=== PATIENT | male | born 1975 | race Caucasian/White ===

== ENCOUNTER 2016-10-22 19:31 | Emergency (ER) | payer OTHER ==
[2016-10-22 19:51] VITALS: BP 161/106; PULSE 90; RESP 16; TEMP 97.7
--- NOTE | 2016-10-22 20:35 | XR ---
Right wrist and right hand HISTORY: Trauma and pain 4 views of the right wrist correlated to right hand same date, 3 views of the right hand Bone mineralization, joint spaces and alignment are maintained IMPRESSION: No fracture or dislocation. Follow-up as indicated
--- NOTE | 2016-10-22 20:43 | ED ---
Upper Extremity HPI - General Chief Complaint: Extremity Injury, Upper Stated Complaint: Hand Injury/IHS Time Seen by Provider: 10/22/16 19:59 Source: patient, RN notes reviewed, old records reviewed Mode of arrival: ambulatory Limitations: no limitations - History of Present Illness Initial Comments: Patient is a 41 year old male with chief complaint of right hand and thumb pain after a rima landed on his hand at work. Patient denies any other injury that occured. Patient reports increased pain with movement of hand and axial thumb loading. Denies peripheral paresthesias. Patient is right handed. PAtient denies previous right hand injuries. Patient denies elbow, shoulder or back pain. Patient denies fever, chills, shortness of breath, chest pain, nausea, vomiting, abdomiinal pain. Place: work - Related Data Home Medications Medication Instructions Recorded Confirmed metFORMIN HCL 1,000 mg PO BID 06/14/16 10/22/16 sitaGLIPtin [Januvia] 100 mg PO DAILY 06/14/16 10/22/16 Previous Rx's Medication Instructions Recorded Hydrochlorothiazide [Hydrodiuril] 12.5 mg PO DAILY #20 cap 10/08/14 Allergies Allergy/AdvReac Type Severity Reaction Status Date / Time No Known Allergies Allergy Verified 10/22/16 19:51 Review of Systems ROS Statement: Those systems with pertinent positive or pertinent negative responses have been documented in the HPI. ROS Other: All systems not noted in ROS Statement are negative. Past Medical History Past Medical History: Diabetes Mellitus, Hyperlipidemia, Hypertension Additional Past Medical History / Comment(s): migraine History of Any Multi-Drug Resistant Organisms: None Reported Past Surgical History: No Surgical Hx Reported Past Psychological History: No Psychological Hx Reported Smoking Status: Never smoker Past Alcohol Use History: None Reported Past Drug Use History: None Reported General Exam Limitations: no limitations General appearance: alert, in no apparent distress Head exam: Present: atraumatic, normocephalic, normal inspection Eye exam: Present: normal appearance, PERRL, EOMI. Absent: scleral icterus, conjunctival injection, periorbital swelling ENT exam: Present: normal exam, mucous membranes moist Neck exam: Present: normal inspection. Absent: tenderness, meningismus, lymphadenopathy Respiratory exam: Present: normal lung sounds bilaterally. Absent: respiratory distress, wheezes, rales, rhonchi, stridor Cardiovascular Exam: Present: regular rate, normal rhythm, normal heart sounds. Absent: systolic murmur, diastolic murmur, rubs, gallop, clicks GI/Abdominal exam: Present: soft, normal bowel sounds. Absent: distended, tenderness, guarding, rebound, rigid Extremities exam: Present: normal inspection, full ROM, normal capillary refill. Absent: tenderness, pedal edema, joint swelling, calf tenderness Right Forearm Wrist exam: Present: normal inspection, full ROM, swelling (mild swelling and echymosis near thumb base ), tenderness over anatomical snuff box, pain with axial thumb loading. Absent: erythema Hand Wrist exam: Present: normal inspection, full ROM Neuro motor exam: Present: wrist extension intact, thumb opposition intact, thumb IP flexion intact, thumb adduction intact, fingers 2-5 abduction intact Vascular: Present: normal capillary refill Back exam: Present: normal inspection Neurological exam: Present: alert, oriented X3, CN II-XII intact Psychiatric exam: Present: normal affect, normal mood Skin exam: Present: warm, dry, intact, normal color. Absent: rash Course Vital Signs 10/22/16 19:47 Temperature 97.7 F Pulse Rate 90 Respiratory 16 Rate Blood Pressure 161/106 O2 Sat by Pulse 97 Oximetry Procedures - Orthopedic Splinting/Casting Injury #1 Side: right Upper Extremity Injury Location: hand Upper Extremity Immobilizer: thumb spica Additional Comments: Patient assessed and is neurovascularly intact after splint applied. Medical Decision Making - Medical Decision Making Patient is a 41 year old male with right thumb and wrist pain after a heavy rima landed on it at work at [employer]. Patient xrays are negative for acute process. Patient is tender over the snuffbox area. Thumb spica splint applied. Given referral to orthopedics. Patient understands treatment plan and will comply, return parameters discussed. Disposition Clinical Impression: Strain of right wrist, Sprain, thumb Disposition: HOME SELF-CARE Condition: Good Instructions: Hand Sprain (ED), Scaphoid Fracture (ED) Additional Instructions: Patient instructed to follow-up with orthopedic physician. Remain in splint until seen by orthopedic. Return to the [facility] if any alarming signs or symptoms occur. Referrals: Estefany Gonzalez MD [Primary Care Provider] - 1-2 days Bruce Connolly DO [Doctor of Osteopathic Medicine] - 1-2 days Time of Disposition: 20:45
== END 2016-10-22 20:58 | disposition home or self-care (01) ==
LOC: EC 19:31
DX: S63.501A Unspecified sprain of right wrist, initial encounter (principal); S63.601A Unspecified sprain of right thumb, initial encounter; E11.9 Type 2 diabetes mellitus without complications; Z79.899 Other long term (current) drug therapy
CPT/HCPCS: 29125; 99283

== ENCOUNTER 2020-12-03 18:09 | Emergency (ER) | payer OTHER ==
--- NOTE | 2020-12-03 18:36 | ED ---
General Adult HPI - General Chief complaint: Neck Pain/Injury Stated complaint: Shakey, stiff neck Time Seen by Provider: 12/03/20 18:27 Source: patient Mode of arrival: ambulatory Limitations: no limitations - History of Present Illness Initial comments: Terry is a 45-year-old gentleman diabetes, hypertension and hyperlipidemia presents to ER today for evaluation of sudden onset of sweating and lightheadedness. Patient reports he was cooking dinner when he suddenly got very sweaty fell when he was going to pass out. This was similar to episodes of hypoglycemia in the past but he reports he checked his glucose and it was in the 200s. He then decided to come to ER for further evaluation. She patient reports that he feels like he is very tense right now has some tension in his neck and a mild headache, no chest pain shortness breath no recent illness. - Related Data Home Medications Medication Instructions Recorded Confirmed metFORMIN HCL 1,000 mg PO BID 06/14/16 10/22/16 sitaGLIPtin [Januvia] 100 mg PO DAILY 06/14/16 10/22/16 Previous Rx's Medication Instructions Recorded hydroCHLOROthiazide [Hydrodiuril] 12.5 mg PO DAILY #20 cap 10/08/14 Allergies Allergy/AdvReac Type Severity Reaction Status Date / Time No Known Allergies Allergy Verified 12/03/20 18:16 Review of Systems ROS Statement: Those systems with pertinent positive or pertinent negative responses have been documented in the HPI. ROS Other: All systems not noted in ROS Statement are negative. Past Medical History Past Medical History: Diabetes Mellitus, Hyperlipidemia, Hypertension Additional Past Medical History / Comment(s): migraine History of Any Multi-Drug Resistant Organisms: None Reported Past Surgical History: No Surgical Hx Reported Past Psychological History: No Psychological Hx Reported Smoking Status: Current every day smoker Past Alcohol Use History: None Reported Past Drug Use History: None Reported General Exam - General Exam Comments Initial Comments: Physical Exam GENERAL: Patient is well-developed and well-nourished. Patient is nontoxic and well- hydrated and is in no distress. HENT: Normocephalic, Atraumatic. Full range of motion of neck without pain EYES: PERRL, EOMI PULMONARY: Unlabored respirations. No audible rales rhonchi or wheezing was noted. CARDIOVASCULAR: There is a regular rate and rhythm without any murmurs gallops or rubs. ABDOMEN: Soft and nontender with normal bowel sounds. SKIN: Skin is clear with no lesions or rashes and otherwise unremarkable. : Deferred NEUROLOGIC: Patient is alert and oriented x3. Moving all extremities spontaneously MUSCULOSKELETAL: Normal extremities with adequate strength and full range of motion. No lower extremity swelling or edema. No calf tenderness. PSYCHIATRIC: Normal psychiatric evaluation. Limitations: no limitations Course Vital Signs 12/03/20 12/03/20 12/03/20 18:11 19:08 19:39 Temperature 97.4 F L Pulse Rate 89 82 Respiratory 20 18 18 Rate Blood Pressure 149/104 114/78 O2 Sat by Pulse 97 96 Oximetry 12/03/20 12/03/20 20:38 21:02 Temperature 97.6 F Pulse Rate 83 Respiratory 18 Rate Blood Pressure 130/81 O2 Sat by Pulse 96 Oximetry Medical Decision Making - Medical Decision Making The patient was seen and evaluated history is obtained from patient labs were obtained EKG was obtained due to complaint of lightheadedness, EKG was obtained 1826 rate is 81 rhythm is sinus there is a normal axis, there are normal intervals, MD 146, QRS 88 QTc is 427 there are no acute ST elevations or depressions there is no evidence of ischemia, infarction or malignant arrhythmia Labs head CT and chest x-ray were all unremarkable patient is feeling better after IV fluids. I did advise patient his glucose was only 104 on labs which does not correlate with the greater than 200 reading he had at home. I suspect his meter may be reading erroneously high and his symptoms were likely due to an episode of hypoglycemia. Patient is in agreement with this and will recheck his meter. Close return parameters were discussed patient is discharged home in stable condition. - Lab Data Result diagrams: 12/03/20 19:14 12/03/20 19:14 Lab Results 12/03/20 12/03/20 12/03/20 Range/Units 19:14 19:14 19:14 WBC 6.3 (3.8-10.6) k/uL RBC 5.14 (4.30-5.90) m/uL Hgb 15.2 (13.0-17.5) gm/dL Hct 44.7 (39.0-53.0) % MCV 87.0 (80.0-100.0) fL MCH 29.6 (25.0-35.0) pg MCHC 34.0 (31.0-37.0) g/dL RDW 12.8 (11.5-15.5) % Plt Count 211 (150-450) k/uL MPV 8.4 Neutrophils % 43 % Lymphocytes % 40 % Monocytes % 9 % Eosinophils % 3 % Basophils % 1 % Neutrophils # 2.7 (1.3-7.7) k/uL Lymphocytes # 2.6 (1.0-4.8) k/uL Monocytes # 0.6 (0-1.0) k/uL Eosinophils # 0.2 (0-0.7) k/uL Basophils # 0.1 (0-0.2) k/uL PT 11.0 (9.0-12.0) sec INR 1.0 (<1.2) APTT 24.9 (22.0-30.0) sec Sodium 135 L (137-145) mmol/L Potassium 4.1 (3.5-5.1) mmol/L Chloride 98 (98-107) mmol/L Carbon Dioxide 24 (22-30) mmol/L Anion Gap 13 mmol/L BUN 24 H (9-20) mg/dL Creatinine 0.81 (0.66-1.25) mg/dL Est GFR (CKD-EPI)AfAm >90 (>60 ml/min/1.73 sqM) Est GFR (CKD-EPI)NonAf >90 (>60 ml/min/1.73 sqM) Glucose 104 H (74-99) mg/dL Calcium 9.5 (8.4-10.2) mg/dL Magnesium 1.5 L (1.6-2.3) mg/dL Total Bilirubin 0.9 (0.2-1.3) mg/dL AST 35 (17-59) U/L ALT 55 H (4-49) U/L Alkaline Phosphatase 44 (38-126) U/L Troponin I (0.000-0.034) ng/mL Total Protein 8.1 (6.3-8.2) g/dL Albumin 5.0 (3.5-5.0) g/dL 12/03/20 Range/Units 19:14 WBC (3.8-10.6) k/uL RBC (4.30-5.90) m/uL Hgb (13.0-17.5) gm/dL Hct (39.0-53.0) % MCV (80.0-100.0) fL MCH (25.0-35.0) pg MCHC (31.0-37.0) g/dL RDW (11.5-15.5) % Plt Count (150-450) k/uL MPV Neutrophils % % Lymphocytes % % Monocytes % % Eosinophils % % Basophils % % Neutrophils # (1.3-7.7) k/uL Lymphocytes # (1.0-4.8) k/uL Monocytes # (0-1.0) k/uL Eosinophils # (0-0.7) k/uL Basophils # (0-0.2) k/uL PT (9.0-12.0) sec INR (<1.2) APTT (22.0-30.0) sec Sodium (137-145) mmol/L Potassium (3.5-5.1) mmol/L Chloride (98-107) mmol/L Carbon Dioxide (22-30) mmol/L Anion Gap mmol/L BUN (9-20) mg/dL Creatinine (0.66-1.25) mg/dL Est GFR (CKD-EPI)AfAm (>60 ml/min/1.73 sqM) Est GFR (CKD-EPI)NonAf (>60 ml/min/1.73 sqM) Glucose (74-99) mg/dL Calcium (8.4-10.2) mg/dL Magnesium (1.6-2.3) mg/dL Total Bilirubin (0.2-1.3) mg/dL AST (17-59) U/L ALT (4-49) U/L Alkaline Phosphatase (38-126) U/L Troponin I <0.012 (0.000-0.034) ng/mL Total Protein (6.3-8.2) g/dL Albumin (3.5-5.0) g/dL Disposition Clinical Impression: Lightheadedness Disposition: HOME SELF-CARE Is patient prescribed a controlled substance at d/c from ED?: No Referrals: Estefany Gonzalez MD [Primary Care Provider] - 1-2 days
[2020-12-03] MEDS ORDERED: SODIUM CHLORIDE 0.9% 1,000 ML IV STA (18:58)
[2020-12-03 19:09] VITALS: RESP 18
[2020-12-03 19:21] LABS: Basophils # (A) 0.1 k/uL (0-0.2); Basophils % (A) 1 %; Eosinophils # (A) 0.2 k/uL (0-0.7); Eosinophils % (A) 3 %; HCT 44.7 % (39.0-53.0); HGB 15.2 gm/dL (13.0-17.5); Lymphocytes # (A) 2.6 k/uL (1.0-4.8); Lymphocytes % (A) 40 %; MCH 29.6 pg (25.0-35.0); Mean Platelet Volume 8.4; Monocytes # (A) 0.6 k/uL (0-1.0); Monocytes % (A) 9 %; Neutrophils # (A) 2.7 k/uL (1.3-7.7); Neutrophils % (A) 43 %; Platelet Count 211 k/uL (150-450); RBC 5.14 m/uL (4.30-5.90); RDW 12.8 % (11.5-15.5); WBC 6.3 k/uL (3.8-10.6)
[2020-12-03 19:33] LABS: ALT 55 U/L (4-49); AST 35 U/L (17-59); African American GFR (CKD) >90 (>60 ml/min/1.73 sqM); Alkaline Phosphatase 44 U/L (38-126); Anion Gap 13 mmol/L; Blood Urea Nitrogen 24 mg/dL (9-20); Calcium 9.5 mg/dL (8.4-10.2); Carbon Dioxide 24 mmol/L (22-30); Chloride 98 mmol/L (98-107); Glucose 104 mg/dL (74-99); Magnesium 1.5 mg/dL (1.6-2.3); Non-African American GFR(CKD) >90 (>60 ml/min/1.73 sqM); Potassium 4.1 mmol/L (3.5-5.1); Sodium 135 mmol/L (137-145); Total Bilirubin 0.9 mg/dL (0.2-1.3); Total Protein 8.1 g/dL (6.3-8.2)
--- NOTE | 2020-12-03 19:35 | CT ---
EXAMINATION TYPE: CT brain wo con DATE OF EXAM: 12/03/2020 COMPARISON: None HISTORY: headache CT DLP: 1099.4 mGycm Automated exposure control for dose reduction was used. Ventricles and sulci appear normal. There is no mass effect nor midline shift. There is no sign of in tracranial hemorrhage. Calvarium is intact. There is normal aeration of the mastoid sinuses. IMPRESSION: Normal unenhanced head CT scan.
--- NOTE | 2020-12-03 19:36 | XR ---
EXAMINATION TYPE: XR chest 2V DATE OF EXAM: 12/03/2020 COMPARISON: 10/07/2014 HISTORY: Chest pain TECHNIQUE: FINDINGS: Heart and mediastinum are normal. Lungs are clear. Diaphragm is normal. Bony thorax appears normal. There are chest leads. IMPRESSION: No active cardiopulmonary disease. Normal heart. No change.
[2020-12-03] MEDS ORDERED: MAGNESIUM SULFATE-D5W PMX 1 GM in DEXTROSE/WATER 1 100ML.BAG IVPB ONE (19:39)
[2020-12-03 19:57] LABS: Partial Thromboplastin Time 24.9 sec (22.0-30.0)
[2020-12-03 20:39] VITALS: BP 130/81; PULSE 83
[2020-12-03 21:03] VITALS: TEMP 97.6
== END 2020-12-03 21:03 | disposition home or self-care (01) ==
LOC: EC 18:09
DX: R42 Dizziness and giddiness (principal); R61 Generalized hyperhidrosis; R51.9 Headache, unspecified; E11.9 Type 2 diabetes mellitus without complications; F17.200 Nicotine dependence, unspecified, uncomplicated; Z79.84 Long term (current) use of oral hypoglycemic drugs
CPT/HCPCS: 36415; 93005; 80053; 83735; 84484; 85025; 85610; 85730; 71046; 70450; 99284; 96365; J3475